=== PATIENT | female | born 1945 | race Native Hawaiian/Other Pacific Islander ===

== ENCOUNTER 2016-05-15 13:57 | Emergency (ER) | payer MEDICARE ==
[2016-05-15 14:18] VITALS: BMI 24.2
[2016-05-15 14:22] VITALS: BP 143/87; PULSE 90; RESP 17; TEMP 97.9; O2SAT 97
== END 2016-05-15 16:39 | disposition left against medical advice (07) ==
LOC: ED 13:57
DX: Z02.89 Encounter for other administrative examinations (principal)

== ENCOUNTER 2016-05-20 09:05 | Emergency (ER) | payer MEDICARE ==
[2016-05-20 09:35] VITALS: BMI 23.8
[2016-05-20 09:38] VITALS: O2SAT 97
[2016-05-20 11:00] LABS: ADD MANUAL DIFF? NO
[2016-05-20 11:03] LABS: BASO # 0.04 K/mm3 (0.0-2.0); BASO % 0.4 % (0.0-3.0); EOS # 0.4 (0.0-0.7); EOS % 3.6 % (1.5-5.0); GRAN # 7.46 (1.4-6.5); HEMATOCRIT 36.8 % (36.0-48.0); LYMPH # 2.3 (1.2-3.4); LYMPH % 21.7 % (22.0-35.0); MEAN CELL VOLUME 90.9 fL (80.0-105.0); MEAN CORPUSCULAR HEMOGLOBIN 31.1 pg (25.0-35.0); MEAN CORPUSCULAR HGB CONC 34.2 g/dl (31.0-37.0); MEAN PLATELET VOLUME 8.9 fl (7.0-11.0); MONO # 0.5 (0.1-0.6); MONO % 4.3 % (1.0-6.0); PLATELET COUNT 254 10^3/uL (120.0-450.0); RED CELL DISTRIBUTION WIDTH 14.1 % (11.5-14.5); WHITE BLOOD COUNT 10.7 10^3/ul (4.5-11.0)
[2016-05-20 11:11] LABS: POTASSIUM 4.2 mmol/L (3.6-5.0)
[2016-05-20 11:12] LABS: ALB/GLOB RATIO 1.1 (1.1-1.8); BILIRUBIN,TOTAL 0.6 mg/dL (0.2-1.3); CALCIUM 8.9 mg/dL (8.4-10.5); TOTAL PROTEIN 8.9 g/dL (5.8-8.3)
[2016-05-20 11:29] VITALS: BP 159/87; PULSE 87; RESP 18; TEMP 98.1
--- NOTE | 2016-05-20 12:29 | ED PDOC ---
Arrival/HPI - General Chief Complaint: Medical Clearance Time Seen by Provider: 05/20/16 09:40 Historian: Patient - History of Present Illness Narrative History of Present Illness (Text): 05/20/16 12:45 71yr old female presents today stating that she needs dialysis. pt states her last round of dialysis was 05/10. pt denies any complaints. no cp or sob. no fever/chills. no abdominal pain. Patient [place] and [place] gets it [place]. Patient states she recently traveled to [place] and missed her dialysis. Patient states she is followed by Dr. Oh. Past Medical History - Provider Review Nursing Documentation Reviewed: Yes - Travel History Have you recently traveled outside [place] w/in the past 3 mons?: Yes If Yes, travel location?: [place] - Infectious Disease Hx of Infectious Diseases: None - Tetanus Immunization Tetanus Immunization: Unknown - Cardiac Hx Cardiac Disorders: Yes Hx Hypertension: Yes - Pulmonary Hx Respiratory Disorders: No - Neurological Hx Neurological Disorder: No - HEENT Hx HEENT Disorder: No - Renal Hx Renal Disorder: Yes Hx Dialysis: Yes (MWF [facility]) Date of Last Dialysis Treatment: 05/10/16 Other/Comment: LEFT LIMB ALERT-FISTULA - Endocrine/Metabolic Hx Endocrine Disorders: No - Hematological/Oncological Hx Blood Disorders: Yes Hx Anemia: Yes Hx Hepatitis C: Yes - Integumentary Hx Dermatological Disorder: No (LEFT FISTULA,RT CW PORT) - Musculoskeletal/Rheumatological Hx Falls: No - Gastrointestinal Hx Gastrointestinal Disorders: Yes Hx Diverticulitis: Yes (11-03-2015) Hx Gastroesophageal Reflux: Yes - Genitourinary/Gynecological Hx Genitourinary Disorders: Yes ([facility] started 4 wks ago pt voids) Hx Reproductive Disorders: No - Psychiatric Hx Psychophysiologic Disorder: No Hx Emotional Abuse: No Hx Physical Abuse: No Hx Substance Use: No - Surgical History Hx Section: Yes Other/Comment: FISTULA PLACEMENT - Anesthesia Hx Anesthesia Reactions: No Hx Malignant Hyperthermia: No - Suicidal Assessment Feels Threatened In Home Enviroment: No Family/Social History - Physician Review Nursing Documentation Reviewed: Yes Family/Social History: Unknown Family HX Smoking Status: Never Smoked Hx Alcohol Use: No Hx Substance Use: No Allergies/Home Meds Allergies/Adverse Reactions: Allergies No Known Allergies Allergy (Verified 05/20/16 09:35) Home Medications: Home Meds Medication Instructions Recorded Confirmed No Known Home Med 05/15/16 05/20/16 Review of Systems - Review of Systems Constitutional: absent: Fatigue, Fevers Respiratory: absent: SOB, Cough Cardiovascular: absent: Chest Pain, Palpitations Gastrointestinal: absent: Abdominal Pain, Diarrhea, Nausea, Vomiting Musculoskeletal: absent: Arthralgias, Back Pain, Neck Pain Skin: absent: Rash, Pruritis Physical Exam Vital Signs Reviewed: Yes Vital Signs Temp Pulse Resp BP Pulse Ox 05/20/16 11:28 98.1 F 87 18 159/87 H 97 05/20/16 09:36 98.3 F 103 H 16 142/78 97 Temperature: Afebrile Blood Pressure: Normal Pulse: Tachycardic Respiratory Rate: Normal Appearance: Positive for: Well-Appearing, Non-Toxic, Comfortable Pain Distress: None Mental Status: Positive for: Alert and Oriented X 3 - Systems Exam Head: Present: Atraumatic Mouth: Present: Moist Mucous Membranes Respiratory/Chest: Present: Clear to Auscultation, Good Air Exchange. No: Respiratory Distress, Accessory Muscle Use Cardiovascular: Present: Regular Rate and Rhythm Abdomen: Present: Normal Bowel Sounds. No: Tenderness, Distention, Peritoneal Signs Lower Extremity: Present: Normal ROM. No: Swelling Skin: Present: Warm, Dry, Normal Color. No: Rashes Psychiatric: Present: Alert, Oriented x 3 Medical Decision Making ED Course and Treatment: 05/20/16 12:51 71-year-old female denies any complaints. states she is overdue for dialysis. cbc; wnl cmp: bun; 46/cr 2.9 ekg; nsr at 89 b/m; normal axis, no st elevations. vitals stable. ambulating with steady gait; no sob. no cp. At present time patient does not currently need dialysis. case discussed with dr. oh; pt to be discharged and go directly to her office. pt will need 24hour urine to reassess for dialysis need. I discussed the results and after the patient. Advised the patient to go directly to Dr. Oh's office. Advised may return if symptoms worsen or persist or if new concerning symptoms develop Patient verbalizes understanding of discharge instructions and need for immediate followup. all aspects of this case were discussed the attending of record. impression: renal insufficiency Go directly to dr. Malik office. Return if symptoms worsen,persist or if new symptoms develop. - Lab Interpretations Lab Results: 05/20/16 10:52 05/20/16 10:52 Lab Results 05/20/16 10:52: WBC 10.7, RBC 4.05, Hgb 12.6, Hct 36.8, MCV 90.9, MCH 31.1, MCHC 34.2, RDW 14.1, Plt Count 254, MPV 8.9, Gran % 70.0 H, Lymph % (Auto) 21.7 L, [place] % (Auto) 4.3, Eos % (Auto) 3.6, Baso % (Auto) 0.4, Gran # 7.46 H, Lymph # 2.3, [place] # 0.5, Eos # 0.4, Baso # 0.04, Sodium 142, Potassium 4.2, Chloride 108, Carbon Dioxide 18 L, Anion Gap 20, BUN 46 H, Creatinine 2.9 H, Est GFR ( Amer) 19, Est GFR (Non-Af Amer) 16, Random Glucose 108, Calcium 8.9, Total Bilirubin 0.6, AST 26, ALT 20, Alkaline Phosphatase 169 H, Total Protein 8.9 H, Albumin 4.6, Globulin 4.3, Albumin/Globulin Ratio 1.1 Disposition/Present on Arrival - Present on Arrival Any Indicators Present on Arrival: No History of DVT/PE: No History of Uncontrolled Diabetes: No Urinary Catheter: No History of Decub. Ulcer: No History Surgical Site Infection Following: None - Disposition Have Diagnosis and Disposition been Completed?: Yes Diagnosis: Renal insufficiency Disposition: HOME/ ROUTINE Disposition Time: 12:28 Patient Plan: Discharge Patient Problems: Current Active Problems Problem Status Diagnosed Renal insufficiency Acute Condition: GOOD Additional Instructions: Go directly to dr. Malik office. Return if symptoms worsen,persist or if new symptoms develop. Referrals: Iqra Sawyer DO [Primary Care Provider] - Follow up with primary Jesusita Oh MD [Staff Provider] - Follow up with primary
--- NOTE | 2016-05-20 18:55 | CARD ---
APPROVED REPORT EKG Measurement Heart [id number] CO [id number] <Conclusion> Normal sinus rhythm Normal ECG
== END 2016-05-20 12:42 | disposition home or self-care (01) ==
LOC: ED 09:05
DX: N28.9 Disorder of kidney and ureter, unspecified (principal); I10 Essential (primary) hypertension; Z99.2 Dependence on renal dialysis